=== PATIENT | male | born 1950 | race Caucasian/White ===

== ENCOUNTER 2018-04-21 11:44 | Day surgery (SDC) | payer MEDICARE, MEDICAID, SELFPAY ==
--- NOTE | 2018-04-21 | PATH_ITS ---
[facility] Accession Number: [id number] . 01 Material submitted: . PART A: TRANSVERSE COLON POLYPS PART B: SIGMOID COLON POLYP . 02 Diagnosis: A. Biopsy, Transverse Colon Polyps: Tubular adenoma involving both biopsy fragments. . B. Biopsy, Sigmoid Colon Polyp: Single polypoid-shaped fragment of colon mucosa consistent with mucosal polypoid redundancy. Focal recent intramucosal hemorrhage, nonspecific. Negative for dysplasia and malignancy. MRV/04/22/2018 . 02 Electronically signed: . Fortino Silva MD, Pathologist NPI- [id number] . 01 Gross description: . Received two formalin-filled containers, both labeled with the patient's name: . A. In a container labeled transverse colon polyps, are two 0.2-0.3 cm portions of tissue, entirely submitted in cassette A. B. In a container labeled sigmoid colon polyp, the specimen consists of a 0.3 cm portion of tissue, entirely submitted in cassette B. ([id number]) /FRR . 02 Pathologist provided ICD-10: D12.3 . 02 CPT . 614345, 756165 Performed at: 01 [facility] [address], [place], [place] [id number] MD Valdez Paredes MD Phone: [phone] Performed at: 02 [facility] [address] [place], [place] [id number] MD Ivy Dawn MD Phone: [phone]
[2018-04-21 12:11] VITALS: BP 170/88; PULSE 93; RESP 20; TEMP 36.9; O2SAT 98
[2018-04-21] MEDS: SODIUM CHLORIDE 0.9% 1,000 ML 70 ML IV (12:19)
--- NOTE | 2018-04-21 12:37 | PM.HP.1 ---
History of Present Illness Date Patient Seen: 04/21/18 Chief complaint: [id number] SCREENING COLONOSCOPY Narrative: The patient is a 67-year-old male who is here for a colonoscopy for colon cancer screening. He has a history of IBS. Please refer to my office note 03/09/2018 for further details. Patient History Medical History Colon cancer screening (Acute) GERD (gastroesophageal reflux disease) (Acute) H/O flexible sigmoidoscopy (Acute) Hyperlipidemia (Acute) Irritable bowel syndrome (Acute) Obesity (Acute) Social History household members: family Family & Social History Social History: household members family Meds Home Medications Medication Instructions Recorded Confirmed Type atorvastatin 10 mg PO BEDTIME 04/20/18 04/21/18 History calcium carbonate [Tums] PRN PRN 04/20/18 History cetirizine 10 mg PO DAILY 04/20/18 04/21/18 History cholecalciferol (vitamin D3) 5,000 unit PO DAILY 04/20/18 04/21/18 History [Vitamin D3] docusate sodium 100 mg PO DAILY 04/20/18 04/21/18 History gabapentin 3,000 mg PO DAILY PRN 04/20/18 04/21/18 History ibuprofen 200 mg PO PRN PRN 04/20/18 04/20/18 History potassium gluconate 99 mg PO BEDTIME 04/20/18 04/21/18 History ranitidine HCl [Zantac Maximum 150 mg PO DAILY 04/20/18 04/21/18 History Strength] loratadine 10 mg PO BEDTIME 04/21/18 04/21/18 History magnesium 500 mg PO BEDTIME 04/21/18 04/21/18 History Allergies Allergy/AdvReac Type Severity Reaction Status Date / Time penicillin V Allergy Severe Unlisted Verified 04/21/18 12:21 Pork/Porcine Containing AdvReac Unknown IBS Verified 04/20/18 14:44 Products soy AdvReac Unknown IBS Verified 04/20/18 14:44 Exam Vital Signs (past 8 hours): - 04/21/18 12:11 Temperature 98.5 F Pulse Rate 93 H Respiratory Rate 20 Blood Pressure 170/88 H Pulse Oximetry 98 Oxygen Delivery Method Room Air Narrative Exam Narrative: General: Patient is obese, not in apparent distress Cardiovascular: Regular rate and rhythm, no murmurs, rubs, or gallops; no evidence of edema; no palpable abdominal aortic aneurysm Gastrointestinal: Normoactive bowel sounds, soft, nontender, nondistended, no rebound tenderness, no hepatosplenomegaly, no evidence of hernia Assessment & Plan Assessment & Plan narrative: 67-year-old male with history of IBS who is here for colon cancer screening by means of colonoscopy. Regarding the procedure(s), the risks and potential complications, benefits, and alternatives (including not doing the procedure) were discussed with the patient. The risks include but are not limited to bleeding, splenic injury, infection, perforation which may require surgical intervention, missed lesions, and adverse reactions to sedative medicines. After a question and answer period, the patient agreed to proceed with the procedure(s) and gives informed consent.
--- NOTE | 2018-04-21 12:40 | PM.OP.ENDO ---
Operative Date/Time/Diagnoses Date of procedure: 04/21/18 Procedure Notes Procedure in detail: Surgeon: Enrique Miller MD Procedure: Colonoscopy with polypectomy Preoperative diagnosis: Average risk colon cancer screening Postoperative diagnosis: 3 colon polyp status post polypectomy, grade 2 internal hemorrhoids Medications: Conscious sedation using 7 mg IV of Midazolam and 200 mcg IV of Fentanyl Preanesthesia Assessment An H and P was performed/updated and the Px?s ASA class is 2. The procedure was discussed in detail with the patient. The potential risks and complications including infection, bleeding, missed lesions, perforation, need for surgery in case of perforation, prolonged hospital stay, and were explained. A brief question and answer period was allotted and once all questions were answered, informed consent was obtained. The patient was brought back to the procedure room and placed on standard monitoring. The patient?s vital signs were monitored continuously throughout the entire procedure. Prior to starting, a timeout was performed to confirm the patient?s identity, allergies, medications, and procedure. Procedure in detail The patient was placed in left lateral decubitus position and once adequate sedation was obtained a GENARO was performed. The digital rectal examination did not reveal any palpable lesions. The tip of the colonoscope was placed in the anal canal and advanced with some difficulty in the left colon due to significant looping. This was rectified by increasing sedation and reduction of the scope. The colonoscope then was able to pass all the way to the cecum which was identified by the appendiceal orifice and the ileocecal valve. Careful examination of all hurst of the colon was performed with irrigation of any residual stool. In the transverse colon, there was note of 2 sessile polyps measuring 2-3 mm and these were removed by means of cold Jumbo forceps. Resection and retrieval was complete. In the sigmoid colon, there was note of a 3 mm sessile polyp which was removed by means of cold Jumbo forceps. Resection and retrieval was complete. Retroflexion was performed in the rectum which revealed grade 2 internal hemorrhoids The patient tolerated the procedure well and will be brought back to the recovery area to be discharged once criteria are met. The prep was judged to be good/excellent and adequate to identify polyps less than 5 mm. The withdrawal time was 10 min. The total physician intraservice time was 27 min. Complications There were no complications and estimated blood loss was minimal. Recommendations: Resume previous diet Continue outPx medications Follow up pathology results Repeat colonoscopy in 3 or 5 or 10 years depending on pathology results GI office follow up as needed An emergency contact number was given to the patient for any complications related to the procedure
[2018-04-21] MEDS: MIDAZOLAM 5 MG/5 ML VIAL IV (12:46)
[2018-04-21] MEDS: fentaNYL 250 MCG/5 ML INJ IV (12:47)
[2018-04-21 13:07] VITALS: BP 136/75; PULSE 69; O2SAT 98
[2018-04-21 13:12] VITALS: BP 117/63; PULSE 68; RESP 12; O2SAT 96
--- NOTE | 2018-04-21 13:13 | PM.DS.1 ---
History of Present Illness Chief complaint: [id number] SCREENING COLONOSCOPY Narrative: The patient is a 67-year-old male who is here for a colonoscopy for colon cancer screening. He has a history of IBS. Please refer to my office note 03/09/2018 for further details. Discharge Providers Discharge Date: 04/21/18 Primary care physician: Sonia Ndiaye MD Discharge provider: Enrique Milelr MD Exam Vital Signs (past 8 hours): - 04/21/18 12:11 Temperature 98.5 F Pulse Rate 93 H Respiratory Rate 20 Blood Pressure 170/88 H Pulse Oximetry 98 Oxygen Delivery Method Room Air Narrative Exam Narrative: General: Patient is obese, not in apparent distress Cardiovascular: Regular rate and rhythm, no murmurs, rubs, or gallops; no evidence of edema; no palpable abdominal aortic aneurysm Gastrointestinal: Normoactive bowel sounds, soft, nontender, nondistended, no rebound tenderness, no hepatosplenomegaly, no evidence of hernia Discharge Plan Discharge Plan Patient Disposition: Home Discharge Med Rec/Prescriptions Prescriptions: Continued gabapentin 600 mg Tablet 3,000 mg PO DAILY PRN (Reason: Pain (Scale Score 4-6)) RF: 0 cetirizine 10 mg Tablet 10 mg PO DAILY RF: 0 atorvastatin 10 mg Tablet 10 mg PO BEDTIME RF: 0 ranitidine HCl [Zantac Maximum Strength] 150 mg Tablet 150 mg PO DAILY RF: 0 calcium carbonate [Tums] 200 mg calcium (500 mg) Tablet,Chewable PRN PRN (Reason: Reflux) RF: 0 ibuprofen 200 mg Tablet 200 mg PO PRN PRN (Reason: Pain) RF: 0 docusate sodium 100 mg Capsule 100 mg PO DAILY RF: 0 cholecalciferol (vitamin D3) [Vitamin D3] 1,000 unit Tablet 5,000 unit PO DAILY RF: 0 potassium gluconate 595 mg (99 mg) Tablet 99 mg PO BEDTIME RF: 0 loratadine 10 mg PO BEDTIME RF: 0 magnesium 500 mg PO BEDTIME RF: 0 Follow up/Referrals: Sonia Ndiaye MD [Primary Care Provider] - Discharge Orders: Discharge (Order); Ordered 04/21/18 Ordered By: Enrique Miller Provider Discharge Instructions Diet: Diet as Tolerated Visit Report/Discharge Packet Stand Alone Forms: Colonoscopy Result: Med Grp Discharge Data Primary Care Provider: Sonia Ndiaye Attending Provider: Enrique Miller
[2018-04-21 13:17] VITALS: BP 113/60; PULSE 64; RESP 10; O2SAT 97
[2018-04-21 13:22] VITALS: BP 119/66; PULSE 61; RESP 10; O2SAT 98
[2018-04-21 13:36] VITALS: BP 112/72; PULSE 61; RESP 14; TEMP 36.3; O2SAT 98
== END 2018-04-21 13:52 | disposition home or self-care (01) ==
PROVIDERS: PCP Internal Medicine; Visit Provider Internal Medicine Gastroenterology
PROC: 0DJD8ZZ Inspection of Lower Intestinal Tract, Via Natural or Artificial Opening Endoscopic (ICD-10-PCS; CPT 45378; principal; 2018-04-21 14:00)
DX: Z12.11 Encounter for screening for malignant neoplasm of colon (principal); K64.1 Second degree hemorrhoids; D12.3 Benign neoplasm of transverse colon; D12.5 Benign neoplasm of sigmoid colon
CPT/HCPCS: 45380; J2250; J3010

== ENCOUNTER 2018-05-17 16:04 | Emergency (ER) | payer MEDICARE, MEDICAID, SELFPAY ==
[2018-05-17 16:10] VITALS: BP 176/83; PULSE 65; RESP 16; TEMP 36.6; O2SAT 99; BMI 38.7
--- NOTE | 2018-05-17 16:20 | DI.RAD.S_ITS ---
PROCEDURE: XR HAND RT MIN 3V INDICATIONS: laceration, fall TECHNIQUE: 3 views of the hand(s) acquired. COMPARISON: None. FINDINGS: Bones: No fractures or dislocations. Carpal bones are normally aligned. No suspicious bony lesions. Mild degenerative changes of the interphalangeal joints of the hand are evident. Soft tissues: No suspicious soft tissue calcifications. A small curvilinear foreign body is evident along the volar aspect of the hand underlying the 2nd metacarpal phalangeal joint. No foreign bodies are evident overlying the 5th digit. IMPRESSION: 1. No acute osseous abnormality of the right hand. 2. Mild degenerative changes of the right hand. 2. Curvilinear foreign body along the volar aspect of the 2nd metacarpophalangeal joint is of uncertain chronicity. Dictated by: Mike Ruff M.D. on 05/17/2018 at 15:52 Approved by: Mike Ruff M.D. on 05/17/2018 at 15:56
--- NOTE | 2018-05-17 18:53 | ED.WOUNDLAC ---
HPI - Wound/Laceration <MAINE Poole - Last Filed: 05/17/18 22:19> General Chief Complaint: Wound/Laceration Stated Complaint: fall, right hand pinky finger bleeding Time Seen by Provider: 05/17/18 17:19 Source: patient Mode of arrival: ambulatory Limitations: no limitations History of Present Illness HPI narrative: 67-year-old male with history hyperlipidemia here for complaint of laceration to his right little finger. He states that he had a ground level fall earlier today and caught his finger on his screen door causing a laceration to the palmar aspect of the right little finger. He denies hitting his head. He denies other injuries. He states that his last tetanus was approximately 8 years ago. He states bleeding is controlled with direct pressure. He states that he has had a hard time having the bleeding stop as a Yang restarting. No other concerns or complaints at this time frame. Related Data Home Medications Medication Instructions Recorded Confirmed atorvastatin 10 mg PO BEDTIME 04/20/18 05/17/18 calcium carbonate [Tums] PRN PRN 04/20/18 cetirizine 10 mg PO DAILY 04/20/18 04/21/18 cholecalciferol (vitamin D3) 5,000 unit PO DAILY 04/20/18 04/21/18 [Vitamin D3] docusate sodium 100 mg PO DAILY 04/20/18 04/21/18 gabapentin 3,000 mg PO DAILY PRN 04/20/18 05/17/18 ibuprofen 200 mg PO PRN PRN 04/20/18 04/20/18 potassium gluconate 99 mg PO BEDTIME 04/20/18 04/21/18 ranitidine HCl [Zantac Maximum 150 mg PO DAILY 04/20/18 04/21/18 Strength] loratadine 10 mg PO BEDTIME 04/21/18 04/21/18 magnesium 500 mg PO BEDTIME 04/21/18 04/21/18 Allergies Allergy/AdvReac Type Severity Reaction Status Date / Time penicillin V Allergy Severe Unlisted Verified 04/21/18 12:21 Pork/Porcine Containing AdvReac Unknown IBS Verified 05/17/18 16:14 Products soy AdvReac Unknown IBS Verified 05/17/18 16:14 Review of Systems <MAINE Poole - Last Filed: 04/01/19 22:19> Constitutional Denies chills, Denies fever(s), Denies lethargy and Denies weakness Eyes Denies change in vision, Denies eye discharge, Denies irritation and Denies loss of vision ENT Ears, Nose, Mouth, and Throat: Denies change in voice, Denies neck pain and Denies sore throat Cardiovascular Denies chest pain, Denies irregular heart rhythm, Denies lightheadedness, Denies palpitations, Denies dyspnea, Denies dyspnea on exertion and Denies orthopnea Respiratory Denies cough, Denies dyspnea, Denies dyspnea on exertion and Denies wheezing Gastrointestinal Gastrointestinal: Denies abdominal pain, Denies change in bowel habits, Denies diarrhea, Denies nausea and Denies vomiting Musculoskeletal Denies neck pain Comments: Laceration right little finger Integumentary/Breasts Denies pruritus, Denies erythema, Denies rash and Denies wounds Neurologic Denies confusion, Denies loss of vision and Denies weakness Psychiatric Denies anxiety, Denies confusion, Denies depression, Denies homicidal ideation and Denies suicidal ideation Endocrine Denies palpitations Hematologic/Lymphatic Denies easy bruising Allergic/Immunologic Denies wheezing PFSH <MAINE Poole - Last Filed: 05/17/18 22:19> Medical History Colon cancer screening (Acute) GERD (gastroesophageal reflux disease) (Acute) H/O flexible sigmoidoscopy (Acute) Hyperlipidemia (Acute) Irritable bowel syndrome (Acute) Obesity (Acute) Social History household members: family Smoking Status: Never smoker Social History household members: family Smoking Status: Never smoker Exam <MAINE Poole - Last Filed: 05/17/18 22:19> Initial Vital Signs Initial Vital Signs: Vital Signs Temperature 98 F 05/17/18 16:10 Pulse Rate 65 05/17/18 16:10 Respiratory Rate 16 05/17/18 16:10 Blood Pressure 176/83 H 05/17/18 16:10 Pulse Oximetry 99 05/17/18 16:10 Const General: cooperative and well developed Nutritional Appearance: well nourished Orientation: alert, awake, oriented x3 and not confused HENMT Mouth: oral mucosae normal and moist mucous membranes Eyes Conjunctivae: conjunctivae normal Sclera: sclerae normal Pupils: PERRL EOM: EOM intact bilaterally Chest Chest: normal inspection of the chest Resp Effort & Inspection: normal respiratory effort, able to speak in complete sentences, no respiratory distress and no use of accessory muscles Auscultation: clear to auscultation bilaterally, no rales, no rhonchi and no wheezes Cardio Rate: regular rate Rhythm: regular rhythm Heart Sounds: no click, no gallops, no murmurs and no rubs Skin General: no rashes or lesions noted, No jaundice and No petechiae Neuro General: alert, oriented x3, gait normal and no focal motor deficits Speech: speech normal Extrem Other: Two and 0.5 cm flap laceration to the right little finger palmar aspect in the area of the PIP joint. Distal sensation is intact. Distal cap refill less than 2 seconds. Full range of motion. <Brian Duenas DO - Last Filed: 05/18/18 00:36> Initial Vital Signs Initial Vital Signs: Vital Signs Temperature 98 F 05/17/18 16:10 Pulse Rate 65 05/17/18 16:10 Respiratory Rate 16 05/17/18 16:10 Blood Pressure 176/83 H 05/17/18 16:10 Pulse Oximetry 99 05/17/18 16:10 Procedures <MAINE Poole - Last Filed: 05/17/18 22:19> Laceration Repair Laceration 1: Side (If applicable): right (Right little finger) Size (cm): 2.5 Description: flap Depth: simple, single layer Local Anesthetic: lidocaine 1% Amount of anesthesia used (mL): 3 Pre-repair: wound explored and irrigated extensively Skin layer closed with: nylon Size (cm): 5-0 Number of sutures: 15 Technique: simple, interrupted Course <MAINE Poole - Last Filed: 05/17/18 22:19> Orders Ordered: ED Orders 05/17/18 16:20 XR hand RT min 3V Stat Discontinued Medications Diphtheria/Tetanus/Acell Pertussis (Adacel) 0.5 ml IM .ONCE ONE Stop: 05/17/18 19:36 Last Admin: 05/17/18 19:36 Dose: 0.5 ml Vital Signs - 8 hr 05/17/18 18:55 05/17/18 20:27 Pulse Rate 77 70 Respiratory Rate 14 18 Blood Pressure [Left Arm] 182/73 H 138/72 Pulse Oximetry 99 98 <Brian Duenas DO - Last Filed: 05/18/18 00:36> Orders Ordered: ED Orders 05/17/18 16:20 XR hand RT min 3V Stat Discontinued Medications Diphtheria/Tetanus/Acell Pertussis (Adacel) 0.5 ml IM .ONCE ONE Stop: 05/17/18 19:36 Last Admin: 05/17/18 19:36 Dose: 0.5 ml Vital Signs - 8 hr 05/17/18 18:55 05/17/18 20:27 Pulse Rate 77 70 Respiratory Rate 14 18 Blood Pressure [Left Arm] 182/73 H 138/72 Pulse Oximetry 99 98 MDM - Wound/Laceration <MAINE Poole - Last Filed: 05/17/18 22:19> Imaging Data Right hand: Radiologist's impression: [address] [address] XRay Report Signed Patient: Devyn Márquez PMR#: [id number] : [id number]:[id number] Age/Sex: 67 / MDate of Service: 05/17/18 Loc: ED Accession Number: [id number] Procedure: XR hand RT min 3V Ordering Provider: Kalli Epps D.O. PROCEDURE: XR HAND RT MIN 3V INDICATIONS: laceration, fall TECHNIQUE: 3 views of the hand(s) acquired. COMPARISON: None. FINDINGS: Bones: No fractures or dislocations. Carpal bones are normally aligned. No suspicious bony lesions. Mild degenerative changes of the interphalangeal joints of the hand are evident. Soft tissues: No suspicious soft tissue calcifications. A small curvilinear foreign body is evident along the volar aspect of the hand underlying the 2nd metacarpal phalangeal joint. No foreign bodies are evident overlying the 5th digit. IMPRESSION: 1. No acute osseous abnormality of the right hand. 2. Mild degenerative changes of the right hand. 2. Curvilinear foreign body along the volar aspect of the 2nd metacarpophalangeal joint is of uncertain chronicity. Dictated by: Mike Ruff M.D. on 05/17/2018 at 15:52 Approved by: Mike Ruff M.D. on 05/17/2018 at 15:56 MDM Narrative Medical decision making narrative: X-ray of the right hand was obtained and was negative for any acute findings to the area of the right little finger. No foreign bodies to the little finger. Nonacute foreign body is seen into the MCP of the 2nd digit. Tetanus was updated in the emergency room. Laceration to the right little finger was closed with 15 5-0 nylon simple interrupted sutures. Wound is dressed with bacitracin and a dressing. The finger is splinted to prevent too much flexion that would open up the wound. Sutures removed in 10 days. [id number] Tylenol or Motrin as needed for any discomfort. For any worsening symptoms return to the emergency room. Follow-up with primary care provider. Discharge Plan Departure Patient Disposition: Home Clinical Impression: Laceration of right little finger Qualifiers: Encounter type: initial encounter Damage to nail status: without damage Foreign body presence: without foreign body Qualified Code(s): S61.216A - Laceration without foreign body of right little finger without damage to nail, initial encounter Discharge Date/Time: 05/17/18 20:31 Interventions: ED Discharge Assessment Last Done: 05/17/18 20:30 Instructions: DI for Laceration Repair Activity Restrictions/Additional Instructions: X-ray of the right fingers were obtained was negative for any foreign bodies or fractures. Laceration to right little finger was closed with 15 sutures. Sutures will need to be removed in approximately 10 days. [id number] Tylenol or Motrin as needed for any discomfort. Dress wound daily with bacitracin dressing until healed. Use splint to protect the finger and decrease chances of a finger laceration being reopened. Follow up with primary care provider. Return emergency room for worsening symptoms. Tetanus was updated emergency room today. Prescriptions: No Action gabapentin 600 mg Tablet 3,000 mg PO DAILY PRN (Reason: Pain (Scale Score 4-6)) RF: 0 cetirizine 10 mg Tablet 10 mg PO DAILY RF: 0 atorvastatin 10 mg Tablet 10 mg PO BEDTIME RF: 0 ranitidine HCl [Zantac Maximum Strength] 150 mg Tablet 150 mg PO DAILY RF: 0 calcium carbonate [Tums] 200 mg calcium (500 mg) Tablet,Chewable PRN PRN (Reason: Reflux) RF: 0 ibuprofen 200 mg Tablet 200 mg PO PRN PRN (Reason: Pain) RF: 0 docusate sodium 100 mg Capsule 100 mg PO DAILY RF: 0 cholecalciferol (vitamin D3) [Vitamin D3] 1,000 unit Tablet 5,000 unit PO DAILY RF: 0 potassium gluconate 595 mg (99 mg) Tablet 99 mg PO BEDTIME RF: 0 loratadine 10 mg PO BEDTIME RF: 0 magnesium 500 mg PO BEDTIME RF: 0 Referrals: Sonia Ndiaye MD [Primary Care Provider] - <Brian Duenas DO - Last Filed: 05/18/18 00:36> Cosign ED Attending Briature Attestation: I was immediately available in the department for consultation. Documentation has been reviewed. I agree with assessment and plan.
[2018-05-17 18:55] VITALS: BP 182/73; PULSE 77; RESP 14; O2SAT 99
[2018-05-17] MEDS: TET,DIPH,PERTUSS(ACELL),VAC/PF 0.5 ML SYRINGE IM (19:36)
[2018-05-17 20:27] VITALS: BP 138/72; PULSE 70; RESP 18; O2SAT 98
== END 2018-05-17 20:31 | disposition home or self-care (01) ==
PROVIDERS: Emergency Provider Nurse Practitioner Family; PCP Internal Medicine
DX: S61.216A Laceration without foreign body of right little finger without damage to nail, initial encounter (principal); W19.XXXA Unspecified fall, initial encounter; Z23 Encounter for immunization
CPT/HCPCS: 12001; 73130; 90471; 99283; 90715

== ENCOUNTER → 2018-12-28 18:51 | Outpatient (ROUT) | payer MEDICARE, MEDICAID, SELFPAY ==
[2018-12-28 19:05] LABS: Add Manual Diff / Slide Review NO; Basophils Absolute Auto 100 /uL (0-100); Eosinophils Absolute Auto 200 /uL (0-450); Eosinophils Percent Auto 2.6 % (2-4); Hematocrit 45.8 % (41-53); Hemoglobin 15.3 g/dL (13.5-17.5); Lymphocytes Absolute Auto 2500 /uL (1100-4500); Lymphocytes Percent Auto 33.6 % (25-40); Mean Corpuscular HGB Conc 33.4 % (30-36); Mean Corpuscular Hemoglobin 30.7 PG (26-34); Mean Corpuscular Volume 91.9 fL (80-100); Monocytes Absolute Auto 600 /uL (0-900); Monocytes Percent Auto 8.5 % (3-14); Neutrophils Absolute Auto 4100 /uL (1500-7000); Neutrophils Percent Auto 54.3 % (50-75); Platelet Count 189 X10^3/uL (150-400); Red Blood Cell Count 4.99 X10^6/uL (4.5-5.9); Red Cell Distribution Width 13.5 % (11.6-14.8); White Blood Cell Count 7.5 X10^3/uL (4.5-11.0)
[2018-12-28 19:18] LABS: Alanine Aminotransferase 36 IU/L (<50); Albumin 4.7 g/dL (3.5-5.0); Albumin Globulin Ratio 1.6 (1.0-2.8); Alkaline Phosphatase 83 U/L (38-126); Aspartate Aminotransferase 33 IU/L (17-59); Bilirubin Total 0.8 mg/dL (0.2-1.3); Blood Urea Nitrogen 14 mg/dL (9-20); Calcium 10.8 mg/dL (8.4-10.2); Carbon Dioxide 28 mmol/L (22-32); Chloride 99 mmol/L (98-107); Cholesterol 157 mg/dL (140-199); Estimated Glomerular Filt Rate > 60.0 mL/min (>60); Glucose 126 mg/dL (80-110); HDL Cholesterol 44 mg/dL (40-60); HEMOLYSIS 17 (0-50); LDL Cholesterol Calculated 88 mg/dL (<100); Potassium 4.3 mmol/L (3.4-5.1); Sodium 141 mmol/L (137-145); Total Protein 7.7 g/dL (6.3-8.2); Triglycerides 123 mg/dL (35-150)
[2018-12-28 19:19] LABS: Hemoglobin A1C% w Est Avg Glu 6.1 % (4.0-6.0)
== END ==
PROVIDERS: PCP Internal Medicine; Visit Provider Physician Assistant
DX: J30.9 Allergic rhinitis, unspecified (principal); R73.03 Prediabetes; E78.2 Mixed hyperlipidemia
CPT/HCPCS: 80053; 80061; 83036; 85025

== ENCOUNTER → 2020-11-28 14:37 | Outpatient (CLI) | payer MEDICARE, MEDICAID, SELFPAY ==
--- NOTE | 2020-11-28 | DI.US.S_ITS ---
PROCEDURE: US ABD AORTA ANEURYSM SCREEN INDICATIONS: CARDIOVASCULAR DISEASE TECHNIQUE: Real time scanning was performed of the aorta and iliac arteries, with image documentation. COMPARISON: None. FINDINGS: Aorta: Proximal aorta is not well seen. Mid-aorta measures 1.8 cm. Distal aortic diameter is 1.4 cm. Iliac arteries: Right common iliac artery measures 1 cm. Left common iliac artery measures 1 cm. IMPRESSION: Negative for aneurysm. Dictated by: Venancio Guy M.D. on 11/28/2020 at 14:26 Approved by: Venancio Guy M.D. on 11/28/2020 at 14:26
== END ==
PROVIDERS: PCP Internal Medicine; Referring Provider Physician Assistant; Visit Provider Physician Assistant
DX: Z13.6 Encounter for screening for cardiovascular disorders (principal); I25.10 Atherosclerotic heart disease of native coronary artery without angina pectoris
CPT/HCPCS: 76706

== ENCOUNTER → 2021-10-28 13:39 | Outpatient (CLI) | payer MEDICARE, MEDICAID, SELFPAY ==
--- NOTE | 2021-10-28 13:41 | DI.RAD.S_ITS ---
PROCEDURE: XR SHOULDER RT MIN 2V INDICATIONS: limited ROM, pain in right upper arm and shoulder TECHNIQUE: Two views of the shoulder were acquired. COMPARISON: None. FINDINGS: Bones: No acute fracture or dislocation. No suspicious bony lesions. Mild degenerative changes are present at the glenohumeral and acromioclavicular joints. Soft tissues: No suspicious soft tissue calcifications. IMPRESSION: Mild degenerative change. No acute radiographic findings. Dictated by: Charley Nagel M.D. on 10/28/2021 at 15:03 Approved by: Charley Nagel M.D. on 10/28/2021 at 15:04
--- NOTE | 2021-10-28 13:41 | DI.RAD.S_ITS ---
PROCEDURE: XR HUMERUS RT 2V INDICATIONS: limited ROM, pain in right upper arm and shoulder TECHNIQUE: 2 views of the humerus were acquired. COMPARISON: None. FINDINGS: Bones: No fractures or dislocations. No suspicious bony lesions. Soft tissues: No suspicious soft tissue calcifications. IMPRESSION: No acute radiographic findings. If pain persists, followup imaging in 5-7 days is recommended to exclude occult fracture. Dictated by: Charley Nagel M.D. on 10/28/2021 at 15:03 Approved by: Charley Nagel M.D. on 10/28/2021 at 15:03
== END ==
PROVIDERS: PCP Physician Assistant; Referring Provider Physician Assistant; Visit Provider Physician Assistant
DX: M79.621 Pain in right upper arm (principal); M25.619 Stiffness of unspecified shoulder, not elsewhere classified
CPT/HCPCS: 73030; 73060

== ENCOUNTER → 2021-11-21 16:54 | Outpatient (CLI) | payer MEDICARE, MEDICAID, SELFPAY ==
--- NOTE | 2021-11-21 16:55 | DI.MRI.S_ITS ---
PROCEDURE: MR SHOULDER RT WO CON INDICATIONS: ROTATOR CUFF TEAR ARTHROPATHY OF RT SHOULDER TECHNIQUE: Noncontrast oblique coronal T2 fast spin echo with fat saturation, oblique sagittal T1 spin echo and T2 fast spin echo with fat saturation, axial T1 spin echo and T2 fast spin echo with fat saturation through the shoulder. COMPARISON: None. FINDINGS: Image quality: Excellent. Rotator cuff: Moderate to high-grade partial-thickness tear involving distal supraspinatus at its insertion on the humeral head is seen extending to musculotendinous junction. Focal full-thickness perforation involving most distal supraspinatus at its insertion on the humeral head is seen with up to 7 mm medial retraction of torn tendon fibers. Distal infraspinatus tendinosis and low-grade articular surface partial-thickness tear is seen. Low to moderate grade partial-thickness tear involving superior fibers of distal subscapularis is seen. Sagittal images demonstrate mild supraspinatus and infraspinatus muscle atrophy. Bones and bursae: No bone marrow contusions or fractures. Moderate acromioclavicular joint osteoarthritic changes are seen with joint space narrowing and downward osteophyte formation depressing the musculotendinous junction of supraspinatus. Mild to moderate glenohumeral joint osteoarthritic changes also noted with joint space narrowing and subchondral sclerosis. Small to moderate amount of subacromial subdeltoid bursal fluid is seen. No gross loose bodies. Capsule and soft tissues: Subtle signal abnormality involving superior anterior labrum at 12 to 1 o'clock position is seen concerning for subtle superior anterior labral tear. The long head of the biceps tendon is thickened intra-articularly. The rotator interval appears normal, without fibrosis. The coracohumeral ligament is normal in thickness. IMPRESSION: 1. Moderate to high-grade partial-thickness tear involving distal supraspinatus extending to musculotendinous junction with focal full-thickness perforation involving mid to posterior fibers of distal supraspinatus at its insertion on the humeral head with up to 7 mm medial retraction of torn tendon fibers. Distal infraspinatus tendinosis and low-grade intrasubstance partial-thickness tear. Low to moderate grade partial-thickness tear involving superior fibers of distal subscapularis. Mild supraspinatus and infraspinatus muscle atrophy. 2. Moderate acromioclavicular joint and glenohumeral joint osteoarthritis. No fracture or dislocation. Moderate subacromial subdeltoid bursal fluid. No definite loose bodies. 3. Suggestion of subtle superior anterior labral tear at 12 to 1 o'clock position. 4. Proximal intra-articular portion of long head of biceps tendinosis. Dictated by: Geo Anton M.D. on 11/22/2021 at 8:12 Approved by: Geo Anton M.D. on 11/22/2021 at 8:17
== END ==
PROVIDERS: PCP Physician Assistant; Referring Provider Orthopaedic Surgery; Visit Provider Orthopaedic Surgery
DX: M75.111 Incomplete rotator cuff tear or rupture of right shoulder, not specified as traumatic (principal); M19.011 Primary osteoarthritis, right shoulder
CPT/HCPCS: 73221

== ENCOUNTER → 2022-12-23 16:13 | Outpatient (CLI) | payer MEDICARE, MEDICAID, SELFPAY ==
--- NOTE | 2022-12-23 | DI.RAD.S_ITS ---
PROCEDURE: XR LUMBAR SPINE 2-3V INDICATIONS: LOW BACK PAIN TECHNIQUE: 3 views of the lumbar spine were acquired. COMPARISON: None. FINDINGS: Bones: 5 [id number] vertebrae are present. There is normal bony alignment. No vertebral body compression fractures. No suspicious bony lesions. Mild degenerative disc changes throughout the lumbar spine. Moderate L3-L4, L4-L5 and L5-S1 facet arthropathy. Mild L1-L2 and L2-L3 facet arthropathy. Soft tissues: Overlying bowel gas pattern is normal. No suspicious soft tissue calcifications. IMPRESSION: Multilevel degenerative disc disease. Multilevel facet arthropathy. No fracture. No acute osseous lesion. If symptoms and/or clinical suspicion for pathology persists, evaluation with MRI should be considered for further assessment. Dictated by: Christina Shipley MD, PhD on 12/23/2022 at 16:44 Approved by: Christina Shipley MD, PhD on 12/23/2022 at 16:45
== END ==
LOC: DI 16:16
PROVIDERS: PCP Physician Assistant; Referring Provider Internal Medicine; Visit Provider Internal Medicine
DX: M51.16 Intervertebral disc disorders with radiculopathy, lumbar region (principal); M47.26 Other spondylosis with radiculopathy, lumbar region; M47.27 Other spondylosis with radiculopathy, lumbosacral region
CPT/HCPCS: 72100